=== PATIENT | male | born 1960 | race American Indian/Alaskan Native ===

== ENCOUNTER → 2016-11-29 | Outpatient (CLI) | payer BC ==
--- NOTE | 2016-11-29 18:26 | CT ---
EXAMINATION TYPE: CT abdomen pelvis w con DATE OF EXAM: 11/29/2016 COMPARISON: NONE HISTORY: LLQ pain for [address] DLP: 1302.1 mGycm Automated exposure control for dose reduction was used. TECHNIQUE: Helical acquisition of images was performed from the lung bases through the pelvis. CONTRAST: Performed with Oral Contrast and with IV Contrast, patient injected with 100 mL of Omnipaque 300. FINDINGS: LUNG BASES: Minimal bibasilar subsegmental atelectasis is appreciated. LIVER/GB: The liver contains a 7 mm hypoattenuating lesion that is too small to accurately characteri ze and is diffusely hypoattenuated compatible with mild hepatic steatosis compared to the attenuation of the spleen. PANCREAS: No significant abnormality is seen. SPLEEN: No significant abnormality is seen. Small splenules are noted adjacent to the red cliff spleen. ADRENALS: No significant abnormality is seen. KIDNEYS: No significant abnormality is seen. FREE AIR: No free air is visualized. RETROPERITONEAL ADENOPATHY: Multiple prominent periaortic lymph nodes measuring up to 8 mm in short axis are seen as well as scattered mesenteric lymph nodes which are elongated and measure up to 7 mm in short axis. REPRODUCTIVE ORGANS: Prostate gland is heterogenous and enlarged containing central gland calcificati ons. Osseous and measures approximately 5.2 cm. Bilateral fat filled small hiatal hernias are present . Prominent bilateral superficial inguinal lymph nodes are seen containing fatty aileen. URINARY BLADDER: No significant abnormality is seen. PELVIC ADENOPATHY: None visualized. OSSEOUS STRUCTURES: No significant abnormality is seen. BOWEL: Bowel is nondilated. Appendix is air-filled and within normal limits of size. Colon is decomp ressed containing few scattered diverticula without pericolonic fat stranding. Few loops of small bow el clustered within the right lower quadrant contain mucosal hyperemia and enhancement without bowel wall thickening or dilation. IMPRESSION: 1. MUCOSAL ENHANCEMENT AND HYPEREMIA A FEW BOWEL LOOPS WITHIN THE RIGHT LOWER QUADRANT WITHOUT OBSTRU CTION OR BOWEL WALL THICKENING. THIS FINDING IS NONSPECIFIC AND MAY RELATE TO INFLAMMATORY/INFECTIOUS MILD ENTERITIS. 2. NUMEROUS PROMINENT SCATTERED PERIAORTIC, MESENTERIC, AND SUPERFICIAL INGUINAL LYMPH NODES. FINDING IS ALSO NONSPECIFIC AND COULD RELATE TO MESENTERIC ADENITIS, ALTHOUGH MALIGNANT ADENOPATHY IS A POSS IBILITY AND SHORT-TERM FOLLOW-UP IS RECOMMENDED TO EVALUATE FOR RESOLUTION.
== END | disposition home or self-care (01) ==
LOC: RADCTMAIN 17:36
PROVIDERS: ATTEND Surgery
DX: R93.3 Abnormal findings on diagnostic imaging of other parts of digestive tract (principal); M62.89 Other specified disorders of muscle; R10.84 Generalized abdominal pain
CPT/HCPCS: 74177; Q9967

== ENCOUNTER 2019-09-05 06:37 | Day surgery (SDC) | payer BC ==
[2019-09-03 16:04] VITALS: BMI 27.8
[~2019-09-05 06:37] MED LIST: ALPRAZolam 0.25 MG TAB PO PRN; ALPRAZolam 0.5 MG TAB PO PRN; NITROGLYCERIN SL TABS 0.4 MG TAB SUBLINGUAL PRN; SODIUM CHLORIDE 0.9% 1,000 ML in EMPTY BAG 1 BAG IV ONE
[2019-09-05] MEDS ORDERED: ASPIRIN 81 MG ONE (06:46)
[2019-09-05] MEDS ORDERED: ASPIRIN 325 MG TAB PO ONE (07:00)
[2019-09-05] MEDS ORDERED: ATORVASTATIN 80 MG TAB PO ONE (07:00)
[2019-09-05] MEDS ORDERED: SODIUM CHLORIDE 0.9% 1,000 ML IV ONE (07:08)
[2019-09-05 07:18] LABS: Glucose,Whole Blood 163 mg/dL (75-99)
[2019-09-05 07:21] VITALS: RESP 16; TEMP 977
[2019-09-05] MEDS ORDERED: fentaNYL (PF) 50 MCG/ML 2 ML AMP IVP ONE (07:35)
[2019-09-05] MEDS ORDERED: LIDOCAINE 1% INJ 10MG/ML (20 ML MDV) SQ ONE (07:35)
[2019-09-05] MEDS ORDERED: VERAPAMIL SYRINGE (5 MG/10 ML) INTRAARTER ONE (07:40)
[2019-09-05] MEDS ORDERED: MIDAZOLAM 2 MG/2 ML VIAL IVP ONE (07:42)
[2019-09-05] MEDS ORDERED: BIVALIRUDIN BOLUS 250 MG/50 ML IV ONE (07:52)
[2019-09-05] MEDS ORDERED: BIVALIRUDIN 250 MG in SODIUM CHLORIDE 0.9% 50 ML IV ONE (07:52)
[2019-09-05] MEDS ORDERED: IOPAMIDOL-370 125ML BTL INJ ONE (08:02)
[2019-09-05] MEDS ORDERED: IOPAMIDOL-370 100ML BTL INJ ONE (08:19)
[2019-09-05] MEDS ORDERED: NITROGLYCERIN SL TABS 0.4 MG TAB SUBLINGUAL PRN ×2 (08:30→08:32)
[2019-09-05] MEDS ORDERED: ZOLPIDEM 5 MG TAB PO PRN (08:30)
[2019-09-05] MEDS ORDERED: MAG HYDROX/AL HYDROX/SIMETH 30 ML CUP PO PRN (08:30)
[2019-09-05] MEDS ORDERED: ATROPINE SULFATE 0.1 MG/ML 10ML SYRINGE IV PRN (08:30)
[2019-09-05] MEDS ORDERED: RX INFO: IV CONTRAST WAS GIVEN 1 EACH MISC MISCELLANE PRN (08:30)
[2019-09-05] MEDS ORDERED: SODIUM CHLORIDE 0.9% 1,000 ML IV SCH (08:30)
[2019-09-05] MEDS ORDERED: Insulin Glulisine (For Pump) 100 UNIT/ML VIAL SQ-PUMP SCH (08:45)
[2019-09-05] MEDS ORDERED: CHOLECALCIFEROL 1,000 UNIT TAB PO SCH (09:00)
[2019-09-05] MEDS ORDERED: VALSARTAN PO SCH (09:00)
[2019-09-05] MEDS ORDERED: NON FORMULARY DRUG (Rosuvastatin Calcium [Crestor] 40 MG) PO SCH (09:00)
[2019-09-05] MEDS ORDERED: [UNRECOGNIZED DRUG - OTHER] PO SCH (09:00)
[2019-09-05] MEDS ORDERED: amLODIPine 5 MG TAB PO SCH (09:00)
[2019-09-05] MEDS ORDERED: HYDROCHLOROTHIAZIDE PO SCH (09:00)
[2019-09-05] MEDS ORDERED: METOPROLOL TARTRATE 25 MG TAB PO SCH (09:00)
[2019-09-05 09:21] LABS: Glucose,Whole Blood 159 mg/dL (75-99)
--- NOTE | 2019-09-05 10:04 | CC ---
CARDIAC CATHETERIZATION REPORT Radhasarahi is a 59-year-old male with a known history of hypertension, hyperlipidemia, diabetes mellitus, and history of coronary artery disease, status post stenting in 2014 who presented with symptoms of exertional angina and a positive stress test. In view of that, recommendation made regarding cardiac catheterization. The procedures, risks, and complication were discussed with the patient who is in full understanding and agreement. PROCEDURE: Patient was brought to lab rn in a fasting semi-sedated state after receiving fentanyl and Benadryl and achieving moderate conscious sedated state. Using Xylocaine anesthesia and Seldinger technique, a 6-Jamaican sheath was introduced in the right radial artery. Selective right and left coronary angiography performed using 5-Jamaican 3.5 bend right and left Edilia catheter. Multiple views of the coronary artery including hemiaxial views obtained. Following that, angioplasty and stenting was performed. Following that, a 5-Jamaican tight pigtail catheter was introduced in the left ventricle and left ventricular end-diastolic pressure was calculated following that catheter and sheath were removed. Hemostasis was obtained with deployment of a TR band. There was no immediate complication. Patient was returned to his room in stable condition. Of note, patient received intra-arterial verapamil. FINDINGS: FLUOROSCOPY: There was calcification involving the left anterior descending artery and side involving the right coronary artery. LEFT MAIN: This is a large-sized vessel, bifurcating into left circumflex, left anterior descending artery. Left main coronary artery has no evidence of obstructive coronary artery disease. LEFT ANTERIOR DESCENDING ARTERY: This is is a large-sized vessel reaching toward the apex with a wraparound apex segment giving rise to a large diagonal branch in the proximal segment. The left anterior descending artery has diffuse intimal disease of 20% to 30% and the stented segment into the diagonal branch is patent. There is a 40% to 50% plaque at the ostium. At the ostium of the diagonal branch. The very distal right coronary artery at the apex has a 90% stenosis. The rest of the vessel has no high-grade stenosis. LEFT CIRCUMFLEX: This is a large nondominant vessel, giving rise to 2 large obtuse marginal branch. The stented segment in the mid left circumflex is patent. There is diffuse intimal disease throughout the course of the vessel with area of stenosis up to 40% to 50% without any evidence of high-grade stenosis in the very distal digits 2nd obtuse marginal branch, there is an area of stenosis of about 60-70 percent that has not progressed significantly compared to 2014. RIGHT CORONARY ARTERY: This is a large dominant vessel, bifurcating distally PDA and posterolateral segment branches calcified distally prior to the bifurcation. There is 70%-80%eccentric lesion. The rest of the vessel has intimal disease without any evidence of high-grade stenosis. LEFT VENTRICULOGRAM: Left ventriculogram was not performed. HEMODYNAMICS: There was no gradient across the aortic valve. The left ventricular end- diastolic pressure was 10-12 mmHg. CONCLUSION: 1. Significant stenosis in the distal right coronary artery that has progressed since 2014. 2. Patent stent to the left circumflex into the diagonal branch. 3. Mild to moderate disease in the LAD and the left circumflex. RECOMMENDATION: In view of finding anatomy, I recommend proceeding with angioplasty and stenting of the right coronary artery. The procedures, risks, and complication were discussed with the patient who is in full understanding and agreement. MMMIKAELA / ANITAN: [id number] /
--- NOTE | 2019-09-05 11:38 | PTCA ---
PERCUTANEOUSTRANS CORORONARY ANGIOGRAPHY Osiris Figueroa is a 59-year-old male with known history of hypertension, hyperlipidemia, diabetes mellitus, who has presented with symptoms of angina and a positive myocardial perfusion imaging, underwent cardiac catheterization, was found to have significant disease in the distal right coronary artery. In view of that, recommendation regarding angioplasty and stenting, the procedures, risks, and complication were discussed with the patient who is in full understanding and agreement. PROCEDURE: A 6-Latvian FR4 guiding catheter introduced into the system after cannulating the right coronary ostium, a 0.014 balanced medium weight J-wire was advanced across the lesion, positioned distally. Subsequently another 0.014 balanced medium weight J-wire with the help of a straight FineCross was advanced and positioned distally in a alexis fashion. Subsequently and after removing the FineCross a 4.0 x 15 mm Xience Shelia stent was advanced, deployed and postdilated at 18 atmospheres, following that the balloon was removed and a 4.5 x 12 mm NC Trek balloon was advanced and one inflation at 14 atmospheres was done. After the last inflation, after appropriate wait, the balloon and the guidewire were withdrawn back in the guiding catheter. Images were obtained and repeated. Those images reveal stable successful stenting. At that point, the guiding catheter, the balloon and the guidewire were removed and a left ventricular end- diastolic pressure was calculated. Following that, catheter and sheath were removed. Hemostasis was obtained with deployment of a TR band. There was no immediate complication patient was returned to his room in stable condition. Of note, the patient had no chest discomfort or EKG changes with the inflation he received Angiomax per protocol and was continued on Effient. RESULTS: Successful stenting of the distal right coronary artery with reduction in stenosis from 80% to 0%. RECOMMENDATION: Patient will be continued on aspirin, Effient, beta robert, PILO inhibitor and statin. The importance of dual antiplatelet treatment were discussed with the patient and his family and they are in full understanding and agreement. Duration of procedure is 53 minutes. MMODL / IJN: [id number] /
[2019-09-05 12:04] VITALS: PULSE 70
[2019-09-05 15:35] VITALS: BP 156/86
[2019-09-06] MEDS ORDERED: ASPIRIN 81 MG PO SCH (09:00)
[2019-09-06] MEDS ORDERED: PRASUGREL 10 MG TAB PO SCH (09:00)
== END 2019-09-05 15:00 | disposition home or self-care (01) ==
LOC: CATHCVL 06:37
PROVIDERS: ATTEND Internal Medicine Interventional Cardiology
DX: I25.119 Atherosclerotic heart disease of native coronary artery with unspecified angina pectoris (principal); I25.84 Coronary atherosclerosis due to calcified coronary lesion; I10 Essential (primary) hypertension; Z87.891 Personal history of nicotine dependence; E78.2 Mixed hyperlipidemia; E78.00 Pure hypercholesterolemia, unspecified; E11.9 Type 2 diabetes mellitus without complications; Z82.49 Family history of ischemic heart disease and other diseases of the circulatory system; Z79.02 Long term (current) use of antithrombotics/antiplatelets; Z79.82 Long term (current) use of aspirin; Z79.4 Long term (current) use of insulin; Z79.899 Other long term (current) drug therapy; Z88.1 Allergy status to other antibiotic agents
CPT/HCPCS: 93458; 85347; C9600; C1769 ×3; C1887 ×2; C1725; C1874; C1894; J2250; J2001; J3010; J0583; Q9967 ×2

== ENCOUNTER → 2020-11-30 | Outpatient (CLI) | payer BC ==
[2020-11-30 09:15] LABS: African American GFR (CKD) >90 (>60 ml/min/1.73 sqM); Blood Urea Nitrogen 15 mg/dL (9-20); Non-African American GFR(CKD) >90 (>60 ml/min/1.73 sqM)
--- NOTE | 2020-11-30 23:14 | CT ---
EXAMINATION TYPE: CT angio abdomen pelvis DATE OF EXAM: 11/30/2020 COMPARISON: 11/29/2016 CT abdomen pelvis HISTORY: possible SMA stenosis CT DLP: 663 mGycm Automated exposure control for dose reduction was used. TECHNIQUE: Helical acquisition of images was performed from the lung bases through the pelvis. CONTRAST: Performed without Oral Contrast and with IV Contrast, patient injected with 100 mL of Isovue 370. FINDINGS: VASCULAR: The visualized descending thoracic aorta is normal in caliber. Abdominal aorta normal in caliber with mild to moderate aortobiiliac atherosclerotic disease. No evidence of occlusion or hemodynamically s ignificant stenosis. The ostia of the celiac trunk, SMA, bilateral single renal arteries, and SEDA are patent. There is normal course and caliber of the superior mesenteric artery with no significant can nosis, kinking, or mass effect from adjacent structures. NONVASCULAR: LUNG BASES: Normal. LIVER: Simple hepatic cyst. BILIARY SYSTEM: Normal. PANCREAS: Normal. SPLEEN: Normal. ADRENALS: Normal. KIDNEYS: Normal. BOWEL: No obstruction or thickening. There is normal passage of the SMA over the third portion of th e duodenum with no mass effect or narrowing. Colonic diverticulosis. No acute diverticulitis. Normal appendix. PERITONEUM: No pneumoperitoneum. No free fluid. LYMPH NODES: No lymphadenopathy. PELVIS: Normal. MUSCULOSKELETAL: Degenerative changes of the spine. IMPRESSION: No abdominal aortic aneurysm or dissection. Normal caliber and course of the superior mesenteric antoinette ry with no hemodynamically significant stenosis or mass effect from adjacent structures.
== END | disposition home or self-care (01) ==
LOC: RADCTMAIN 16:57
PROVIDERS: ATTEND Internal Medicine
DX: K55.1 Chronic vascular disorders of intestine (principal)
CPT/HCPCS: 82565; 84520; 74174; Q9967

== ENCOUNTER → 2021-07-19 | Outpatient (CLI) | payer BC ==
--- NOTE | 2021-07-19 17:30 | US ---
EXAMINATION TYPE: US abdomen limited DATE OF EXAM: 07/19/2021 COMPARISON: NONE CLINICAL HISTORY: L02.211 Abdominal wall lesion. Patient presents with palpable lump in the left uppe r abdominal wall that is red and tender. There does not appear to be any fluid collection at the area of palpable lump. Edematous tissue is no sonal at area. IMPRESSION: No discrete drainable fluid collection. Increased echogenicity in the area of concern cou ld be a phlegmon.
== END | disposition home or self-care (01) ==
LOC: RADUSWWP 16:52
PROVIDERS: ATTEND Internal Medicine Hematology & Oncology
DX: L02.211 Cutaneous abscess of abdominal wall (principal)
CPT/HCPCS: 76705

== ENCOUNTER 2021-11-14 07:33 | Day surgery (SDC) | payer BC ==
[2021-11-10 11:56] VITALS: BMI 27.8
[~2021-11-14 07:33] MED LIST changes: +ASPIRIN 325 MG TAB PO ONE; +ATORVASTATIN 80 MG TAB PO ONE; +HEPARIN SODIUM,PORCINE 10,000 UNIT in SODIUM CHLORIDE 0.9% 1,000 ML IRRIGATION PRN; +HEPARIN SODIUM,PORCINE 2,500 UNIT in SODIUM CHLORIDE 0.9% 250 ML IRRIGATION PRN; -SODIUM CHLORIDE 0.9% 1,000 ML in EMPTY BAG 1 BAG IV ONE; +SODIUM CHLORIDE 0.9% 1,000 ML in EMPTY BAG 1 BAG IV SCH
[2021-11-14] MEDS ORDERED: ASPIRIN 81 MG ONE (07:57)
[2021-11-14 08:02] LABS: Glucose,Whole Blood 118 mg/dL (70-110)
[2021-11-14 08:03] VITALS: RESP 18; TEMP 97.7
[2021-11-14 08:10] LABS: Basophils # (A) 0.1 k/uL (0-0.2); Basophils % (A) 1 %; Eosinophils # (A) 0.2 k/uL (0-0.7); Eosinophils % (A) 1 %; HCT 53.4 % (39.0-53.0); HGB 17.4 gm/dL (13.0-17.5); Lymphocytes # (A) 1.7 k/uL (1.0-4.8); Lymphocytes % (A) 14 %; MCH 30.9 pg (25.0-35.0); MCHC 32.6 g/dL (31.0-37.0); Mean Platelet Volume 7.3; Monocytes # (A) 0.8 k/uL (0-1.0); Monocytes % (A) 7 %; Neutrophils # (A) 9.1 k/uL (1.3-7.7); Neutrophils % (A) 77 %; Platelet Count 297 k/uL (150-450); RBC 5.62 m/uL (4.30-5.90); RDW 13.5 % (11.5-15.5); WBC 11.9 k/uL (3.8-10.6)
[2021-11-14 08:17] LABS: African American GFR (CKD) >90 (>60 ml/min/1.73 sqM); Anion Gap 7 mmol/L; Blood Urea Nitrogen 20 mg/dL (9-20); Calcium 9.4 mg/dL (8.4-10.2); Carbon Dioxide 31 mmol/L (22-30); Chloride 102 mmol/L (98-107); Glucose 125 mg/dL (74-99); Non-African American GFR(CKD) >90 (>60 ml/min/1.73 sqM); Potassium 3.5 mmol/L (3.5-5.1); Sodium 140 mmol/L (137-145)
[2021-11-14] MEDS ORDERED: fentaNYL (PF) 50 MCG/ML 2 ML AMP ONE (08:41)
[2021-11-14] MEDS ORDERED: HEPARIN SODIUM 1,000 UN/ML (10ML VL) ONE (08:41)
[2021-11-14] MEDS ORDERED: VERAPAMIL 2.5 MG/ML 2 ML AMP ONE (08:42)
[2021-11-14] MEDS ORDERED: fentaNYL (PF) 50 MCG/ML 2 ML AMP IV ONE (09:20)
[2021-11-14] MEDS ORDERED: LIDOCAINE 1% INJ 10MG/ML (5 ML VIAL-PF) SQ ONE (09:22)
[2021-11-14] MEDS: VERAPAMIL SYRINGE (5 MG/10 ML) INTRAARTER ONE ×2 (09:23→09:40)
[2021-11-14] MEDS: MIDAZOLAM 2 MG/2 ML VIAL IV ONE ×2 (09:30→09:41)
[2021-11-14] MEDS: HEPARIN SODIUM 1,000 UN/ML (10ML VL) IV ONE ×2 (09:30→09:43)
[2021-11-14] MEDS ORDERED: IOPAMIDOL-370 125ML BTL INJ ONE (10:04)
[2021-11-14] MEDS ORDERED: IOPAMIDOL-370 100ML BTL INJ ONE (10:23)
[2021-11-14] MEDS ORDERED: SODIUM CHLORIDE 0.9% 1,000 ML in EMPTY BAG 1 BAG IV SCH (10:45)
[2021-11-14] MEDS ORDERED: MAG HYDROX/AL HYDROX/SIMETH 30 ML CUP PO PRN (10:45)
[2021-11-14] MEDS ORDERED: ZOLPIDEM 5 MG TAB PO PRN (10:45)
[2021-11-14] MEDS ORDERED: RX INFO: IV CONTRAST WAS GIVEN 1 EACH MISC MISCELLANE PRN (10:45)
[2021-11-14] MEDS ORDERED: NITROGLYCERIN SL TABS 0.4 MG TAB SUBLINGUAL PRN (10:45)
[2021-11-14] MEDS ORDERED: ATROPINE SULFATE 0.1 MG/ML 10ML SYRINGE IV PRN (10:45)
--- NOTE | 2021-11-14 10:59 | P.CARDCATH ---
Date of Procedure: 11/14/21 Description of Procedure: Cardiac Catheterization: The patient is a 61-year-old male with a known history of hypertension, hyperlipidemia, diabetes mellitus, multivessel stenting who has been complaining of progressive exertional chest discomfort and he had an abnormal MPI. Recommendations were made regarding cardiac catheterization, the risks and the complications were discussed with the patient who is in full understanding and agreement. Procedure Description: Patient was brought to cathode ray tube assembler in fasting semi-sedated state after receiving Fentanyl and Benadryl achieiving moderate conscious sedated state. Using Xylocaine Anesthesia and Seldinger technique, a 6-Jordanian sheath was introduced in the right radial artery . Subsequently, selective coronary angiography was performed using a 5-Jordanian 3.5 bend Edilia catheter. Multiple views of the coronary artery including hemiaxial views were obtained. Following that angioplasty and stenting were performed. A 6-Jordanian CLS 3.5 guiding catheter was introduced and the system, after cannulating the left main, attempt to advance a 0.014 BMW J wire was unsuccessful, the wire was removed and a 0.014 whisper J-wire with super cross microcatheter was successful in crossing the lesion, the microcatheter could not be advanced. After removing the microcatheter a 1.0 x 12 mm Sapphire balloon was advanced and multiple inflation at 10 unique were done subsequently the balloon was removed and the microcatheter was advanced and the wire was exchanged back to a 0.014 BMW J wire. After removing the microcatheter 2.25 x 12 mm NC Treck balloon was advanced and multiple inflation at 10 unique were done. After removing the balloon a 2.25 x 28 mm Xience philip point stent was deployed distally and postdilated at 16 unique, after removing the balloon a 2.5 x 23 mm Xience philip point was deployed proximal to the first one and postdilated at 16 unique. Subsequently the balloon was removed images were obtained and repeated and revealed stable successful stenting. Following that, catheter and sheath were removed. Hemostasis was obtained with deployment of TR band . There was no immediate complication. Patient was returned to room in stable condition. Of note, the patient received a total of 7000 units of intravenous heparin as well as intra- arterial verapamil. His ACT was followed. He had no chest discomfort was moderate EKG changes that resolved at the end of the procedure. He was continued on Effient. Findings: Fluoroscopy revealed mild calcification of the coronary arteries Left main: This is a large-size vessel, bifurcating into LAD and left circumflex, left main has no high-grade stenosis LAD: In the LAD and its large-size vessel at the takeoff of the first diagonal branch it has a 30% plaque, the takeoff of the diagonal branch has a 70-80% plaque the stented segment in the diagonal branch is patent. The mid distal LAD is totally occluded with no significant antegrade flow Left circumflex: In the left circumflex is a nondominant vessel giving rise to 2 obtuse marginal branch, the proximal segment has diffuse intimal disease of 30% the first obtuse marginal branch has a 60% plaque the stented segment in the second obtuse marginal branch is patent and has distal disease beyond the stent RCA: This is a large-size vessel, bifurcating into PDA and PLV, the mid RCA has 20-30% plaque stented segment is patent with no evidence of significant in-stent restenosis Collaterals there is collaterals from the right coronary artery to the distal LAD Conclusion: 1. Calcified coronary arteries 2. Totally occluded distal LAD was successful stenting of that vessel 3. Moderate to significant disease in the ostium of the diagonal branch with no progression compared to 2020 with mild disease in the proximal 4. Mild to moderate disease in the RCA and left circumflex Recommendations: I have recommended to continue on aspirin and Effient for 6 months without any interruption in addition to aggressive coronary risk modification.. The findings and the recommendations were discussed with the patient and the family and they were in full understanding and agreement. Close follow-up of his LAD lesion and diagonal branch. Duration of sedation is 63 minutes.
[2021-11-14 15:18] VITALS: BP 127/73; PULSE 74
[2021-11-14] MEDS ORDERED: METOPROLOL TARTRATE 25 MG TAB PO SCH (21:00)
[2021-11-15] MEDS ORDERED: ASPIRIN 81 MG PO SCH (09:00)
[2021-11-15] MEDS ORDERED: PRASUGREL 10 MG TAB PO SCH (09:00)
[2021-11-15] MEDS ORDERED: hydroCHLOROthiazide 25 MG TAB PO SCH (09:00)
[2021-11-15] MEDS ORDERED: amLODIPine 5 MG TAB PO SCH (09:00)
[2021-11-15] MEDS ORDERED: VALSARTAN 160 MG TAB PO SCH (09:00)
[2021-11-15] MEDS ORDERED: ATORVASTATIN 80 MG TAB PO SCH (09:00)
== END 2021-11-14 15:15 | disposition home or self-care (01) ==
LOC: CATHCVL 07:33
PROVIDERS: ATTEND Internal Medicine Interventional Cardiology
DX: I25.10 Atherosclerotic heart disease of native coronary artery without angina pectoris (principal); I25.84 Coronary atherosclerosis due to calcified coronary lesion; I25.82 Chronic total occlusion of coronary artery; I10 Essential (primary) hypertension; E78.5 Hyperlipidemia, unspecified; E11.9 Type 2 diabetes mellitus without complications; Z20.822 Contact with and (suspected) exposure to COVID-19; Z95.5 Presence of coronary angioplasty implant and graft; E78.00 Pure hypercholesterolemia, unspecified; Z98.52 Vasectomy status; M19.90 Unspecified osteoarthritis, unspecified site; Z98.890 Other specified postprocedural states; Z82.49 Family history of ischemic heart disease and other diseases of the circulatory system; Z87.891 Personal history of nicotine dependence; Z79.84 Long term (current) use of oral hypoglycemic drugs; Z79.4 Long term (current) use of insulin; Z79.82 Long term (current) use of aspirin; Z79.899 Other long term (current) drug therapy; Z88.1 Allergy status to other antibiotic agents
CPT/HCPCS: 93454; 80048; 85025; 87635; C9600; C1769 ×4; C1887 ×2; C1894; C1725 ×2; C1874 ×2; J2250; J2001; J3010; J1644; Q9967 ×2

== ENCOUNTER → 2023-10-16 | Outpatient (CLI) | payer BC ==
--- NOTE | 2023-10-23 13:36 | P.PCN ---
Date of Procedure: 10/16/23 Operative Findings: Sleep study report Date of service is 10/16/2023 History This is a 63-year-old patient suspected of obstructive sleep apnea due to symptoms of chronic fatigue and snoring. No witnessed apneas. Comorbid condition include diabetes mellitus and coronary artery disease and hypertension Technical description The [employer] Apnea[employer] system was used to conduct this home sleep study. This is a type III home sleep study. The total recording duration was 11 hours and 7 minutes. The study started at 9:57 PM ended at 9:54 AM. There was a total of 7 hours and 22 minutes of flow monitoring and 7 hours and 26 minutes of oxygen saturation monitoring. As such, this is a adequate study Results Respiratory analysis showed a total of 10 obstructive apneas and 30 obstructive hypopneas. The resulting AHI was 5.4. Nevertheless, the majority of the respiratory events occurred while the patient was being supine and the AHI was 40.4 in a supine body position. The patient's disease is positional. Oxygenation analysis The patient had a total of 30 Episodes of oxygen desaturation with a pulse ox however more than 4%. Minimum pulse ox recorded was 82%. Average pulse ox during sleep was 93%. The patient spent approximately 11 minutes of the sleep time below pulse ox of 89% Cardiac analysis Average heart rate was 66 with a minimum heart rate of 54 and a maximum heart rate of 123 Assessment Mild positional obstructive sleep apnea. AHI was up to 5.4 and the respiratory events occurring essentially while the patient sleeping in the supine body position. Mild oxygen desaturations accompanied with those respiratory events. Plan Recommend positional therapy. The patient should be asked to sleep on his side which essentially eliminates the majority of his obstructive respiratory events. No need for CPAP therapy but encourage weight loss. Treat comorbidities. Continue he is unlikely to be related to any pulm of sleep breathing disorder.
== END ==
LOC: 3 N SLEEP 16:54
PROVIDERS: ATTEND Internal Medicine Critical Care Medicine
DX: G47.33 Obstructive sleep apnea (adult) (pediatric) (principal); G47.36 Sleep related hypoventilation in conditions classified elsewhere; E11.9 Type 2 diabetes mellitus without complications; I10 Essential (primary) hypertension; I25.10 Atherosclerotic heart disease of native coronary artery without angina pectoris; Z79.4 Long term (current) use of insulin; Z79.84 Long term (current) use of oral hypoglycemic drugs; Z79.899 Other long term (current) drug therapy; Z88.1 Allergy status to other antibiotic agents